=== PATIENT | female | born 1955 | race Caucasian/White ===

== ENCOUNTER 2019-08-29 17:31 | Emergency (ER) | payer MEDICARE, OTHER ==
--- NOTE | 2019-08-29 18:19 | EDM.PDOC ---
ED HPI GENERAL MEDICAL PROBLEM - General Chief Complaint: Flank Pain Stated Complaint: RIGHT SIDE PAIN Time Seen by Provider: 08/29/19 17:58 Source of Information: Reports: Patient History Limitations: Reports: No Limitations - History of Present Illness INITIAL COMMENTS - FREE TEXT/NARRATIVE: Winifred is a 64 year old female whom presents to [facility] with right flank pain which started abruptly this am. Patient noted slight pain which was similar 2 weeks ago that resolved with self interventions. Patient has a history of left kidney stones about 6 years ago and pain today is very similar. Patient took Ibuprofen at 1:30 and 3 pm which did not improve her pain. Patient [place] staying [place] her cabin over the holiday weekend. Patient has not been evaluated in the [facility] in the past. Patient's brought her to the ER due to severity and duration of pain concerns today that did not improve with po medications or forced hydration. Patient has noticed nausea without vomiting and decreased appetite due to pain concerns. - Related Data Allergies Allergy/AdvReac Type Severity Reaction Status Date / Time No Known Allergies Allergy Verified 08/29/19 17:52 Home Meds: Home Meds Irbesartan 1 tab PO DAILY 08/29/19 [History] Nortriptyline 1 tab PO DAILY 08/29/19 [History] Tamsulosin HCl [Flomax] 0.4 mg PO BEDTIME 10 Days #10 cap.er.24h 08/29/19 [Rx] Past Medical History Genitourinary History: Reports: Renal Calculus - Past Surgical History Female Surgical History: Reports: Oophorectomy ED ROS GENERAL - Review of Systems Review Of Systems: Comprehensive ROS is negative, except as noted in HPI. ED EXAM, RENAL/ - Physical Exam Exam: See Below Exam Limited By: No Limitations General Appearance: Alert, WD/WN, Mild Distress Eye Exam: Bilateral Eye: EOMI Ears: Hearing Grossly Normal Nose: Normal Inspection Throat/Mouth: Normal Voice, No Airway Compromise Head: Normocephalic Neck: Normal Inspection Respiratory/Chest: No Respiratory Distress Cardiovascular: Regular Rate, Rhythm GI/Abdominal: Normal Bowel Sounds, Soft Back Exam: Paraspinal Tenderness (right lower thoracic pain to palpation which reproduces pain). No: CVA Tenderness (R), CVA Tenderness (L) Extremities: Normal Inspection, Normal Range of Motion Neurological: Alert, Oriented, CN II-XII Intact, Normal Cognition, Normal Gait, Normal Reflexes, No Motor/Sensory Deficits Psychiatric: Normal Affect, Normal Mood Skin Exam: Warm, Dry, Intact, Normal Color, No Rash Course - Vital Signs Last Recorded V/S: Last Vital Signs Temp 36.4 C 08/29/19 18:00 Pulse 97 08/29/19 18:00 Resp 16 08/29/19 18:00 BP 174/95 H 08/29/19 18:00 Pulse Ox 99 08/29/19 18:00 - Orders/Labs/Meds Orders: Active Orders 24 hr Category Date Time Status Tamsulosin [Flomax] Med 08/29/19 19:26 Once 0.8 mg PO ONETIME ONE Labs: Laboratory Tests 08/29/19 Range/Units 18:03 Urine Color Yellow (YELLOW) Urine Appearance Clear (CLEAR) Urine pH 8.0 (5.0-8.0) Ur Specific [place] 1.020 (1.008-1.030) Urine Protein Negative (NEGATIVE) mg/dL Urine Glucose (UA) Negative (NEGATIVE) mg/dL Urine Ketones 15 H (NEGATIVE) mg/dL Urine Occult Blood Moderate H (NEGATIVE) Urine Nitrite Negative (NEGATIVE) Urine Bilirubin Negative (NEGATIVE) Urine Urobilinogen 0.2 (0.2-1.0) EU/dL Ur Leukocyte Esterase Negative (NEGATIVE) Urine RBC 0-5 (0-5) Urine WBC Not seen (0-5) Ur Epithelial Cells Not seen Amorphous Sediment Not seen Urine Bacteria Moderate Urine Mucus Not seen - Radiology Interpretation Free Text/Narrative:: Radiology report available at 7:22pm: IMPRESSION: 1. 5 mm stone in the mid right ureter causing moderate right hydroureter, perinephric edema and renal pelvocaliectasis. 2. Hepatic Flexure and proximal transverse colon are collapsed with abrupt caliber change seen on image 1-3 with a large amount of stool sen in the remainder of the transverse colon. Findings may be due to peristalsis but correlation with any recent colonoscopy or barium enema results recommended to exclude a mucosal neoplasm. COPY of radiology report given to patient at time of discharge. CT Results Date: 08/29/19 (Images reviewed by myself and available ER MD noting possible right mid ureteral stone vs vascular calcifications with slight right hydroureter. ) - Re-Assessments/Exams Free Text/Narrative Re-Assessment/Exam: Reassessment completed and patient continues to deny need for pain medications. Patient was only given medication to help with stone pass after her previous kidney stone diagnosis. 08/29/19 18:29 Patient roomed and evaluated shortly after arriving. Pain Management offered if safe ride available and per patient's request. Patient's past medical history was reviewed. I visited the patient in the room where history was collected and physical examination was performed. I discussed further plan of care which included the above workup. I reviewed the physical examination findings with the patient and given the above interventions. I reevaluated the patient and discussed the results of the above workup. I discussed follow up instructions and signs and symptoms that should prompt return to the emergency department. Patient expressed understanding and the patient was discharged. Encouraged close follow up with PCP. Return to an ER if symptoms worsen or new symptoms develop. Patient/Family/Friend voiced understanding and agreed to treatment plan. 08/29/19 19:30 Departure - Departure Time of Disposition: 19:32 Disposition: Home, Self-Care 01 Clinical Impression: Right ureteral calculus, Hydroureter - Discharge Information Prescriptions: Tamsulosin HCl [Flomax] 0.4 mg PO BEDTIME 10 Days #10 cap.er.24h Instructions: Dietary Guidelines to Help Prevent Kidney Stones, Kidney Stones, [id number], Renal Colic, [id number] Referrals: PCP,None [Primary Care Provider] - Forms: ED Department Discharge Additional Instructions: Medical Kidney stone Expulsion Therapy Flomax is a medication used if stone in ureter (tube between kidney and bladder ) is larger in size and more than half way from the kidney to the urinary bladder. Flomax may improve pain, speed up the passage of the kidney stone and decrease pain. Please take your next dose tomorrow, if you receive your first dose during your ER visit. Strain all of your urine. If you notice stone in the filter, place in container and take to your primary care physician for analyzing. 1. Increase Fluid intake. Pain should resolve in 48-72 hours. 2. Ibuprofen or Naproxen (with food) every 6-8hours for inflammation, pain and swelling. 3. Tylenol (Acetaminophen) every 6-8hours for mild pain 4. Flomax 0.4 mg every night x 10days to help stone pass into bladder 5. Strain all urine to save stone for possible lab analysis. 6. See PCP or Contact Urology clinic in 1-2 weeks to follow-up if pain is not resolved or improving. 7. Return to ER, PCP or Urgent Care clinic for repeat evaluation if increase, changes, new or worsen symptoms (including uncontrolled fever, pain, nausea/ vomiting) Discharge Instructions Kidney Stones Kidney stones are a common problem that can cause a lot of pain but fortunately are usually not dangerous. Kidney stones form in the kidney and then can cause a blockage (obstruction) of the flow of urine from the kidney which leads to pain. Most patients can manage kidney stones at home (without a hospital stay). However, sometimes your condition may be worse than it seemed at first, or may get worse with time. Most kidney stones will pass on their own, but occasionally stones may need to be removed by an urologist. Generally, every Emergency Department visit should have a follow-up clinic visit with either a primary or a specialty clinic/provider. Please follow-up as instructed by your emergency provider today. Return to the Emergency Department if: Your pain is not controlled despite the medications provided or recommended. You are vomiting (throwing up) and cannot keep fluids or medications down. You develop a fever (>100.4F). You feel much more ill or develop new symptoms. What can I do to help myself? Be sure to drink plenty of fluids. If instructed to do so, strain your urine (pee) with the urine strainer you were provided with today. Your stone may look like a grain of sand or a small pebble. Collect any stones in the cup provided and bring to your follow-up appointment. Staying active is good, and may help the stone to pass. You may do whatever you feel up to doing without restrictions. Treatment: Non-steroidal anti-inflammatory drugs (NSAIDs). This includes prescription medicines like Toradol (ketorolac) and non-prescription medicines like Advil ( ibuprofen) and Nuprin (ibuprofen) and Naproxen. These pain relievers are very effective for kidney stones. Nausea (sick to your stomach) medication. Nausea and vomiting are common with kidney stones, so your provider may send you home with medicine for this. Flomax (tamsulosin). This medicine is sometimes used for men with prostate problems, but also can help kidney stones to pass. Its effectiveness is controversial or questionable so it is prescribed in certain situations. This medicine can lower blood pressure, and you may feel faint/lightheaded, especially when you first stand up. Be sure to get up gradually, sit down if you feel faint, and avoid activity where feeling faint would be dangerous, such as climbing ladders. If you were given a prescription for medicine here today, be sure toread all of the information (including the package insert) that comes with your prescription. This will include important information about the medicine, its side effects, and any warnings that you need to know about. The pharmacist who fills the prescription can provide more information and answer questions you may have about the medicine. If you have questions or concerns that the pharmacist cannot address, please call or return to the Emergency Department. Remember that you can always come back to the Emergency Department if you are not able to see your regular provider in the amount of time listed above, if you get any new symptoms, or if there is anything that worries you. Sepsis Event Note - Focused Exam Vital Signs: Vital Signs Temp Pulse Resp BP Pulse Ox 08/29/19 18:00 36.4 C 97 16 174/95 H 99 08/29/19 17:46 36.4 C 97 16 174/95 H 99 Date Exam was Performed: 08/29/19 Time Exam was Performed: 19:27 - Problem List & Annotations (1) Right ureteral calculus SNOMED Code(s): 14150088 Code(s): N20.1 - CALCULUS OF URETER Status: Acute Current Visit: Yes - My Orders Last 24 Hours: My Active Orders 08/29/19 19:26 Tamsulosin [Flomax] 0.8 mg PO ONETIME ONE - Assessment/Plan Last 24 Hours: My Active Orders 08/29/19 19:26 Tamsulosin [Flomax] 0.8 mg PO ONETIME ONE
--- NOTE | 2019-08-29 19:24 | CRLCT ---
INDICATION: Right flank pain TECHNIQUE: CT Abdomen and pelvis without i.v. contrast. Coronal and sagittal reformats were obtained. COMPARISON: None FINDINGS: Lower chest: There are 2 small granulomas present in the lateral right lower lobe measuring up to 3 mm. Liver: Unremarkable. Spleen: Unremarkable. Pancreas: Unremarkable. Gallbladder: Unremarkable. Kidney: There is a 5 mm stone in the mid right ureter causing moderate right hydroureter, perinephric edema, and renal pelvicaliectasis. Adrenal: Unremarkable. Bowel: The hepatic flexure and proximal transverse colon are collapsed with abrupt caliber change seen on image 103 with a large amount of stool seen in the remainder of the transverse colon. The appendix is normal in appearance and size. Vascular: Unremarkable. Lymph: Unremarkable. Peritoneum: Unremarkable. No pneumoperitoneum is seen. No significant ascites is noted. Pelvis: Unremarkable. Soft tissue: Unremarkable. Bone: Unremarkable for age. IMPRESSIONS: 1. There is a 5 mm stone in the mid right ureter causing moderate right hydroureter, perinephric edema, and renal pelvicaliectasis. 2. The hepatic flexure and proximal transverse colon are collapsed with abrupt caliber change seen on image 103 with a large amount of stool seen in the remainder of the transverse colon. Findings may be due to peristalsis but correlation with any recent colonoscopy or barium enema results recommended to exclude a mucosal neoplasm. Dictated by Devante Silver MD @ 08/29/2019 7:22:45 PM Please note that all CT scans at this facility use dose modulation, iterative reconstruction, and/or weight-based dosing when appropriate to reduce radiation dose to as low as reasonably achievable. Dictated by: Devante Silver MD @ 08/29/2019 19:23:07 (Electronically Signed)
[2019-08-29] MEDS ORDERED: Tamsulosin 0.4 MG Cap.ER PO ONE (19:26)
== END 2019-08-29 20:16 | disposition home or self-care (01) ==
LOC: JP.ED 17:31
DX: N13.4 Hydroureter (principal); N20.1 Calculus of ureter; Z87.442 Personal history of urinary calculi; Z79.899 Other long term (current) drug therapy
CPT/HCPCS: 74176; 81001; 99284; A9270